=== PATIENT | female | born 1985 | race Caucasian/White ===

== ENCOUNTER 2016-10-02 13:07 | Outpatient (CLI) | payer MEDICAID ==
[~2016-10-02] VITALS: Ht 160 cm; Wt 72.7 kg
--- NOTE | 2016-10-02 14:11 | RADRPT ---
PROCEDURE: OB ultrasound for biophysical profile CLINICAL INDICATION: Biophysical profile. TECHNIQUE: Multiple sonographic images of the pelvis were obtained. Transabdominal view of the gr avid uterus are available for review. The images were reviewed on a PACS workstation. COMPARISON: None FINDINGS: breathing movement = 2/2 tone = 2/2 motion = 2/2 Quantitative amniotic fluid volume = 2/2 BERE = 16.4 cm Single live intrauterine with cardiac activity at 133 beats per minute. There is a posterior placenta without previa. IMPRESSION: 1. Single living intrauterine gestation in cephalic position. 2. Biophysical profile = 11/19. 3. BERE = 16.4 cm. RPTAT: [facility] Physician Madi Date Time Electronically viewed and signed by Charles Denton Physician on 10/02/2016 14:11 /
[2016-10-02 15:32] VITALS: BP 130/88; PULSE 80; RESP 18; Ht 160 cm; Wt 72.7 kg
[2016-10-02 15:58] LABS: ADD SCAN DIFF NO
[2016-10-02 15:59] LABS: BASOPHIL # 0.1 10^3/ul (0.0-0.1); BASOPHILS % 0.4 % (0.0-2.0); EOSINOPHILS # 0.1 10^3/ul (0.0-0.5); EOSINOPHILS % 0.5 % (0.0-7.0); LYMPHOCYTES # 2.2 10^3/ul (0.8-2.9); LYMPHOCYTES % 17.7 % (15.0-51.0); MEAN CORPUSCULAR HEMOGLOBIN 29.9 pg (29.0-33.0); MEAN CORPUSCULAR HGB CONC 34.2 g/dl (32.0-37.0); MEAN CORPUSCULAR VOLUME 87.4 fl (82.0-101.0); MEAN PLATELET VOLUME 12.6 fl (7.4-10.4); MONOCYTE # 0.6 10^3/ul (0.3-0.9); MONOCYTES % 4.7 % (0.0-11.0); NEUTROPHIL # 9.3 10^3/ul (1.6-7.5); NEUTROPHILS % 76.4 % (39.0-77.0); PLATELET COUNT 199 10^3/UL (140-415); RED BLOOD COUNT 4.35 10^6/ul (4.20-5.40); RED CELL DISTRIBUTION WIDTH 13.1 % (11.5-14.5); WHITE BLOOD COUNT 12.2 10^3/ul (4.8-10.8)
[2016-10-02 16:03] LABS: INR 0.91; PARTIAL THROMBOPLASTIN TIME 26.7 Sec (25.0-35.0); PROTIME 12.2 Sec (12.2-14.2)
[2016-10-02 16:12] LABS: ALBUMIN 4.1 g/dl (3.3-4.9); ALBUMIN/GLOBULIN RATIO 1.51; BILIRUBIN,INDIRECT 0.1 mg/dl (0-1.1); BILIRUBIN,TOTAL 0.1 mg/dl (0.2-1.3); CALCIUM 9.1 mg/dl (8.4-10.2); CREATININE 0.52 mg/dl (0.44-1.00); POTASSIUM 3.8 mmol/L (3.5-5.1); TOTAL PROTEIN 6.8 g/dl (6.1-8.1)
--- NOTE | 2016-10-02 16:49 | RADRPT ---
PROCEDURE: Obstetrical ultrasound greater than 14 weeks CLINICAL INDICATION: Vaginal after TECHNIQUE: Real time sonographic imaging of the gravid uterus is performed transabdominally and mu ltiple static joshi scale and Doppler images are submitted for review as are measurements. The image s are reviewed on the PACS. COMPARISON: No relevant exams are available FINDINGS: There is a single living intrauterine gestation in cephalic presentation. The heart beat is estimated at 136 bpm. The measurements are as follows: BPD:9.56 cm HC:33.20 cm AC:35.94 cm FL:7.13 cm Estimated gestational age is 38 weeks 2 days. The estimated date of delivery is 10/14/2016. The estimated weight is 3604 grams. Placenta is posterior fundal and grade2. There is no evidence of placenta previa or abruption. RPTAT:HJJR IMPRESSION: 1. Single viable intrauterine gestation in cephalic presentation estimated at 38 weeks 2 days with t he estimated date of delivery 10/14/2016. 2. Estimated weight 3604 g. Physician David Date Time Electronically viewed and signed by Physician David on 10/02/2016 16:48 /
[2016-10-02 18:59] LABS: ADD UMIC YES; UR ASCORBIC ACID NEGATIVE (NEGATIVE); UR BILIRUBIN (Dip) NEGATIVE (NEGATIVE); UR BLOOD (Dip) 1+ mg/dL (NEGATIVE); UR CLARITY CLEAR (CLEAR); UR COLOR YELLOW (YELLOW); UR GLUCOSE (Dip) NEGATIVE (NEGATIVE); UR KETONES (Dip) 1+ mg/dL (NEGATIVE); UR LEUKOCYTE ESTERASE (Dip) NEGATIVE Leu/ul (NEGATIVE); UR MUCUS FEW /HPF (NONE SEEN); UR NITRITE (Dip) NEGATIVE (NEGATIVE); UR RBC 0 /HPF (0-5); UR TOTAL PROTEIN (Dip) NEGATIVE (NEGATIVE); UR UROBILINOGEN (Dip) NEGATIVE (NEGATIVE)
[2016-10-02] MEDS ORDERED: PRENAT PO (18:59)
[2016-10-02] MEDS ORDERED: CALC600T11 PO (18:59)
--- NOTE | 2016-10-02 19:50 | TRIAGE ---
OB Triage Datetime Report Generated by CPN: 10/02/2016 19:50 Datetime: 10/02/2016 18:18 Stage of : OB Triage Labor Evaluation Frequency: 3-5 Monitor Mode: External Duration (sec)2399: 60-80 Quality: Mild Pattern: Normal: <= 5 Contractions in 10 Minutes Resting Tone [place]: Relaxed Heart Rate FHR Baseline Rate: 135 Monitor Mode: External US Variability: Moderate 6-25 bpm Accelerations: 15X15 Decelerations: None Category: Category I Pain Assessment Pain Scale: 2 Pain Presence: Intermittent Pain Type: Contraction Pain Location: Abdomen; Back Pain Goal: 2 Pain Relief Measures: Comfort Measures Pain Assessment Comments: PT REPORTS MINIMAL PAIN Vaginal Exam Dilatation (cms): 0.0 Effacement (%): 0 Station: -3 Exam By: OGBODU Datetime: 10/02/2016 17:00 Labor Evaluation Frequency: 3-5 Monitor Mode: External Duration (sec)2399: 60-80 Quality: Mild Pattern: Normal: <= 5 Contractions in 10 Minutes Resting Tone [place]: Relaxed Heart Rate FHR Baseline Rate: 135 Monitor Mode: External US Variability: Moderate 6-25 bpm Accelerations: 15X15 Decelerations: None Datetime: 10/02/2016 16:00 Labor Evaluation Frequency: 2-3 Monitor Mode: External Duration (sec)2399: 50-90 Quality: Moderate Pattern: Normal: <= 5 Contractions in 10 Minutes Resting Tone [place]: Relaxed Heart Rate FHR Baseline Rate: 125 Monitor Mode: External US Variability: Moderate 6-25 bpm Accelerations: 15X15 Decelerations: None Datetime: 10/02/2016 15:22 Pain Assessment Pain Scale: 2 Pain Presence: Intermittent Pain Type: Contraction Pain Location: Abdomen; Back Pain Goal: 2 Pain Relief Measures: Comfort Measures Pain Assessment Comments: 0 Datetime: 10/02/2016 15:18 Vaginal Exam Dilatation (cms): 0.0 Effacement (%): 0 Station: -3 Datetime: 10/02/2016 15:07 Labor Evaluation Frequency: 2-3 Monitor Mode: External Duration (sec)2399: 50-90 Quality: Moderate Pattern: Normal: <= 5 Contractions in 10 Minutes Resting Tone [place]: Relaxed Heart Rate FHR Baseline Rate: 125 Monitor Mode: External US Variability: Moderate 6-25 bpm Accelerations: 15X15 Decelerations: None Category: Category I Datetime: 10/02/2016 14:15 Stage of : OB Triage Assessment Type: Triage Time of Arrival: 10/02/2016 13:05 EGA: 39.1 Arrived By: Ambulatory Arrived From: Home Chief Complaint: DFM , UC SINCE 09 PT REQUESTING PREV C/S PAIN 04/23 Movement: Present Contractions: Irregular Time Contractions Began: 10/02/2016 09:00 Contractions: 2-4 Rupture of Membranes: Denies Vaginal Bleeding: None Vaginal Discharge: Denies Recent Sexual Intercouse: Denies Abdominal Trauma: Not Applicable Time Provider Notified: 10/02/2016 16:00 Provider Notified: DR. GUERRA Initial Plan: SVE, IV HYDRATION, BPP, EFW Maternal Assessment Level of Consciousness: Fully Conscious DTR's/Clonus: DTRs 2+; No Clonus Headache: Denies Blurred Vision: No Respiratory Effort: Unlabored; Regular Rhythm; Equal Expansion Breath Sounds, Left: Clear and Equal Breath Sounds, Right: Clear and Equal Nausea/Vomiting: Denies RUQ Epigastric Pain: Denies Lower Extremities Edema: Bilateral Lower Extremities Degree: 1+ Upper Extremities Edema: None Degree: None Facial Edema: None Temperature Route: Axillary Fall Risk Assessment History of Falling: (0) No Secondary Diagnosis: (0) No Ambulatory Aid: (0) Bedrest/Nurse Assist IV Therapy: (0) No Gait: (0) Normal/Bedrest/Immobile Mental Status: (0) Oriented to Own Ability Fall Score: 0 Fall Risk Score Definition: No Risk: No action required Datetime: 09/30/2016 16:30 Vaginal Exam Dilatation (cms): 0.0 Effacement (%): 0 Station: -4 Exam By: Jeovany CHAN RN
--- NOTE | 2016-10-03 00:26 | PN ---
Triage Information Date/Time 10/03/2016 31 years old with IUP at 39.1 weeks and History of prior C/S x1 , here today for r/o Labor. Desires TOLAC. Denies any LOF, vaginal bleeding or decreased movement., Weeks of Gestation 39.1 weeks : 3 Para: 1 Diabetes: none Hypertention: none Objective Vital Signs Date Time Temp Pulse Resp B/P Pulse Ox O2 Delivery O2 Flow Rate FiO2 10/02/16 15:32 98.1 80 18 130/88 Results/Medications Result Diagram: 10/02/16 1515 10/02/16 1515 Results 24 hrs Laboratory Tests Test 10/02/16 15:15 10/02/16 17:00 White Blood Count 12.2 H Red Blood Count 4.35 Hemoglobin 13.0 Hematocrit 38.0 Mean Corpuscular Volume 87.4 Mean Corpuscular Hemoglobin 29.9 Mean Corpuscular Hemoglobin Concent 34.2 Red Cell Distribution Width 13.1 Platelet Count 199 Mean Platelet Volume 12.6 #H Neutrophils % 76.4 Lymphocytes % 17.7 Monocytes % 4.7 Eosinophils % 0.5 Basophils % 0.4 Nucleated Red Blood Cells % 0.0 Neutrophils # 9.3 H Lymphocytes # 2.2 Monocytes # 0.6 Eosinophils # 0.1 Basophils # 0.1 Nucleated Red Blood Cells # 0.0 Prothrombin Time 12.2 Prothrombin Time Ratio 1.0 INR International Normalized Ratio 0.91 Activated Partial Thromboplast Time 26.7 Fibrinogen 690.0 H Sodium Level 135 Potassium Level 3.8 Chloride Level 105 Carbon Dioxide Level 22 Anion Gap 12 Blood Urea Nitrogen 6 L Creatinine 0.52 Glucose Level 63 L Uric Acid 5.0 Calcium Level 9.1 Total Bilirubin 0.1 L Direct Bilirubin 0.00 Indirect Bilirubin 0.1 Aspartate Amino Transf (AST/SGOT) 17 Alanine Aminotransferase (ALT/SGPT) 29 Alkaline Phosphatase 203 H Total Protein 6.8 Albumin 4.1 Globulin 2.70 Albumin/Globulin Ratio 1.51 Urine Color YELLOW Urine Clarity CLEAR Urine pH 5.0 Urine Specific [place] 1.010 Urine Ketones 1+ H Urine Nitrite NEGATIVE Urine Bilirubin NEGATIVE Urine Urobilinogen NEGATIVE Urine Leukocyte Esterase NEGATIVE Urine Microscopic RBC 0 Urine Microscopic WBC 1 Urine Mucus FEW A Urine Hemoglobin 1+ H Urine Glucose NEGATIVE Urine Total Protein NEGATIVE Imaging Results PROCEDURE: Obstetrical ultrasound greater than 14 weeks CLINICAL INDICATION: Vaginal after TECHNIQUE: Real time sonographic imaging of the gravid uterus is performed transabdominally and multiple static joshi scale and Doppler images are submitted for review as are measurements. The images are reviewed on the PACS. COMPARISON: No relevant exams are available FINDINGS: There is a single living intrauterine gestation in cephalic presentation. The heart beat is estimated at 136 bpm. The measurements are as follows: BPD: 9.56 cm HC: 33.20 cm AC: 35.94 cm FL: 7.13 cm Estimated gestational age is 38 weeks 2 days. The estimated date of delivery is 10/14/2016. The estimated weight is 3604 grams. Placenta is posterior fundal and grade2. There is no evidence of placenta previa or abruption. RPTAT:HJJR IMPRESSION: 1. Single viable intrauterine gestation in cephalic presentation estimated at 38 weeks 2 days with the estimated date of delivery 10/14/2016. 2. Estimated weight 3604 g. Assessment/Plan IUP at 39.1 weeks History of C/S x 1 Desires TOLAC No cevical change during observation noted DC home Strict Labor precaution and kick counts discussed Follow up with OB office in 1-2 days after discharge ANNIKA SAM MD Oct 03, 2016 00:26
== END 2016-10-02 19:00 | disposition home or self-care (01) ==
LOC: OBT 13:07 → L-D 13:30 → OBT 19:00
PROVIDERS: ATTEND Obstetrics & Gynecology
DX: O62.8 Other abnormalities of forces of labor (principal); O34.219 Maternal care for unspecified type scar from previous cesarean delivery; Z3A.39 39 weeks gestation of pregnancy
CPT/HCPCS: 36415; 76815; 76818; 80053; 81001; 84560; 85025; 85384; 85610; 85730; 96360; 96361; Z7500; G0463

== ENCOUNTER 2016-10-04 13:58 | Outpatient (CLI) | payer MEDICAID ==
[~2016-10-04] VITALS: Ht 160 cm; Wt 73.8 kg
[~2016-10-04 13:58] MED LIST: CALC600T11 PO; PRENAT PO
[2016-10-04 14:07] VITALS: Ht 160 cm; Wt 73.8 kg
[2016-10-04 14:09] VITALS: BP 134/89; PULSE 76; RESP 18
--- NOTE | 2016-10-04 15:15 | PN ---
Triage Information Date/Time Weeks of Gestation 39 3/7 : 3 Para: 1 Additional information Reports contractions and spotting. h/o CS x1, desires . Objective Vital Signs Date Time Temp Pulse Resp B/P Pulse Ox O2 Delivery O2 Flow Rate FiO2 10/04/16 14:09 98.0 76 18 134/89 98 Room Air Heart Rate Comments reactive Contractions: >10 Minutes Apart Exam L/C Results/Medications Imaging Results BPP ordered Assessment/Plan at 39 3/7 weeks who desires with spotting and contractions, not in active labor -discharge home with labor precautions pending normal BPP -f/u with OB, CS scheduled BERNARDO KINNEY Oct 04, 2016 15:15
--- NOTE | 2016-10-04 15:35 | RADRPT ---
PROCEDURE: OB ultrasound for biophysical profile CLINICAL INDICATION: Contractions TECHNIQUE: Multiple sonographic images of the pelvis were obtained. Transabdominal view of the gr avid uterus are available for review. The images were reviewed on a PACS workstation. COMPARISON: None FINDINGS: breathing movement = 2/2 tone = 2/2 motion = 2/2 BERE = 2/2 BERE = 12.4 cm Single live intrauterine with cardiac activity. heart rate equals 128 beats p er minute. Presentation is cephalic. The placenta is fundal. IMPRESSION: 1. Single viable intrauterine gestation. 2. Biophysical profile = 8/8. 3. BERE = 12.4 cm. RPTAT: KK .Christopher Newberry MD, Date Time Electronically viewed and signed by .Christopher Newberry MD, MD on 10/04/2016 15:35 .B/
--- NOTE | 2016-10-04 15:53 | TRIAGE ---
OB Triage Datetime Report Generated by CPN: 10/04/2016 15:53 Datetime: 10/04/2016 15:44 Labor Evaluation Frequency: 6-9 Monitor Mode: External Duration (sec)2399: 60-100 Quality: Mild Pattern: Normal: <= 5 Contractions in 10 Minutes Resting Tone [place]: Relaxed Heart Rate FHR Baseline Rate: 125 Variability: Moderate 6-25 bpm Accelerations: 15X15 Decelerations: None Category: Category I Pain Assessment Pain Scale: 3 Pain Presence: Intermittent Pain Type: Contraction Pain Location: Abdomen Pain Goal: 3 Datetime: 10/04/2016 15:00 Labor Evaluation Frequency: 5-10 Monitor Mode: External Duration (sec)2399: 60-5mins Quality: Mild Pattern: Normal: <= 5 Contractions in 10 Minutes Resting Tone [place]: Relaxed Heart Rate FHR Baseline Rate: 135 Monitor Mode: External US Variability: Moderate 6-25 bpm Accelerations: 15X15 Decelerations: None Category: Category I Pain Assessment Pain Scale: 3 Pain Presence: Intermittent Pain Type: Contraction Pain Location: Abdomen Pain Goal: 3 Datetime: 10/04/2016 14:04 Stage of : OB Triage Maternal Assessment Level of Consciousness: Fully Conscious DTR's/Clonus: DTRs 2+; No Clonus Headache: Denies Blurred Vision: No Respiratory Effort: Unlabored; Regular Rhythm; Equal Expansion Breath Sounds, Left: Clear and Equal Breath Sounds, Right: Clear and Equal Nausea/Vomiting: Denies RUQ Epigastric Pain: Denies Lower Extremities Edema: Bilateral Lower Extremities Degree: 1+ Facial Edema: None Temperature Route: Axillary Fall Risk Assessment History of Falling: (0) No Secondary Diagnosis: (0) No Ambulatory Aid: (0) Bedrest/Nurse Assist IV Therapy: (0) No Gait: (0) Normal/Bedrest/Immobile Mental Status: (0) Oriented to Own Ability Fall Score: 0 Fall Risk Score Definition: No Risk: No action required Labor Evaluation Frequency: 5 (Annotations: per pt) Monitor Mode: External Duration (sec)2399: 60 Quality: Mild Pattern: Normal: <= 5 Contractions in 10 Minutes Heart Rate FHR Baseline Rate: 135 Monitor Mode: External US FHR Baseline Changes: No Baseline Change Pain Assessment Pain Scale: 3 Pain Presence: Intermittent Pain Type: Cramping; Contraction Pain Location: Abdomen Datetime: 10/04/2016 14:02 Time of Arrival: 10/04/2016 14:02 EGA: 39.3 Arrived By: Wheelchair Arrived From: Home Chief Complaint: contraction, spotting, pain level 3/10 (Annotations: Data stored by CPN on behalf of user) Movement: Present Time Contractions Began: 10/04/2016 09:00 Rupture of Membranes: Denies Vaginal Bleeding: Normal Show Vaginal Discharge: Present Recent Sexual Intercouse: Denies Abdominal Trauma: Not Applicable Patient Complaints: Contractions Time Provider Notified: 10/04/2016 14:37 Provider Notified: Varghese Initial Plan: efm/ sve Datetime: 10/02/2016 14:15 EGA: 39.1 Fall Score: 0 Fall Risk Score Definition: No Risk: No action required
== END 2016-10-04 15:49 | disposition home or self-care (01) ==
LOC: OBT 13:58 → L-D 13:59 → OBT 15:49
PROVIDERS: ATTEND Obstetrics & Gynecology
DX: O46.93 Antepartum hemorrhage, unspecified, third trimester (principal); O62.9 Abnormality of forces of labor, unspecified; Z3A.39 39 weeks gestation of pregnancy
CPT/HCPCS: 76818; Z7500; G0463

== ENCOUNTER 2016-10-05 22:21 | Inpatient (IN) | payer MEDICAID ==
[~2016-10-05] VITALS: Ht 167.6 cm; Wt 73.1 kg
[2016-10-05 22:55] VITALS: Ht 167.6 cm; Wt 73.1 kg
[2016-10-05 22:56] VITALS: BP 133/91; PULSE 95; RESP 18
[2016-10-06] MEDS: LACTATED RINGER'S 1,000 ML IV SCH ×5 (02:09→22:00)
[2016-10-06] MEDS ORDERED: MISOPROSTOL 200 MCG TAB PR PRN ×4 (02:30→20:30)
[2016-10-06] MEDS ORDERED: ACETAMINOPHEN/CODEINE #3 TAB PO PRN ×2 (02:30→20:30)
[2016-10-06] MEDS ORDERED: IBUPROFEN 600 MG TAB PO PRN (02:30)
[2016-10-06] MEDS ORDERED: METHYLERGONOVINE 0.2 MG INJ IM PRN ×4 (02:30→20:30)
[2016-10-06] MEDS ORDERED: LIDOCAINE 1% (MPF) 30 ML INJ INJ PRN ×2 (02:30)
[2016-10-06] MEDS ORDERED: OXYTOCIN 30 UNITS/LR 500 ML IV PRN ×4 (02:30→20:30)
[2016-10-06] MEDS ORDERED: CARBOPROST 250 MCG INJ IM PRN ×4 (02:30→20:30)
[2016-10-06] MEDS ORDERED: BUTORPHANOL 2 MG INJ IV PRN ×2 (02:30)
[2016-10-06] MEDS ORDERED: OXYCODONE/ACETAMINOPHEN (5/325) TAB PO PRN (02:30)
[2016-10-06] MEDS ORDERED: LABETALOL HCL 20MG INJ IV ONE (02:30)
[2016-10-06] MEDS ORDERED: OXYTOCIN 30 UNITS/LR 500 ML IV SCH ×2 (02:30)
[2016-10-06 03:19] LABS: ADD SCAN DIFF NO
[2016-10-06 03:20] LABS: BASOPHIL # 0.1 10^3/ul (0.0-0.1); BASOPHILS % 0.4 % (0.0-2.0); EOSINOPHILS # 0.1 10^3/ul (0.0-0.5); EOSINOPHILS % 1.2 % (0.0-7.0); HEMATOCRIT 36.1 % (37.0-47.0); HEMOGLOBIN 12.5 g/dl (12.0-16.0); LYMPHOCYTES # 2.4 10^3/ul (0.8-2.9); LYMPHOCYTES % 21.1 % (15.0-51.0); MEAN CORPUSCULAR HEMOGLOBIN 30.4 pg (29.0-33.0); MEAN CORPUSCULAR HGB CONC 34.6 g/dl (32.0-37.0); MEAN CORPUSCULAR VOLUME 87.8 fl (82.0-101.0); MEAN PLATELET VOLUME 12.4 fl (7.4-10.4); MONOCYTE # 0.8 10^3/ul (0.3-0.9); MONOCYTES % 7.1 % (0.0-11.0); NEUTROPHILS % 69.9 % (39.0-77.0); PLATELET COUNT 199 10^3/UL (140-415); RED BLOOD COUNT 4.11 10^6/ul (4.20-5.40); WHITE BLOOD COUNT 11.5 10^3/ul (4.8-10.8)
[2016-10-06 03:25] LABS: INR 0.87; PARTIAL THROMBOPLASTIN TIME 27.4 Sec (25.0-35.0); PROTIME 11.8 Sec (12.2-14.2); PT RATIO 0.9
[2016-10-06 03:45] LABS: ALBUMIN 3.8 g/dl (3.3-4.9); ALBUMIN/GLOBULIN RATIO 1.46; CALCIUM 9.4 mg/dl (8.4-10.2); CREATININE 0.56 mg/dl (0.44-1.00); POTASSIUM 3.8 mmol/L (3.5-5.1); TOTAL PROTEIN 6.4 g/dl (6.1-8.1); URIC ACID 4.9 mg/dl (3.1-7.9)
[2016-10-06 08:23] LABS: ADD UMIC YES; UR ASCORBIC ACID NEGATIVE (NEGATIVE); UR BILIRUBIN (Dip) NEGATIVE (NEGATIVE); UR BLOOD (Dip) 3+ mg/dL (NEGATIVE); UR BUDDING YEAST FEW /HPF (NONE SEEN); UR CLARITY CLOUDY (CLEAR); UR COLOR YELLOW (YELLOW); UR GLUCOSE (Dip) NEGATIVE (NEGATIVE); UR KETONES (Dip) NEGATIVE (NEGATIVE); UR LEUKOCYTE ESTERASE (Dip) 1+ Leu/ul (NEGATIVE); UR MUCUS FEW /HPF (NONE SEEN); UR NITRITE (Dip) NEGATIVE (NEGATIVE); UR RBC 10 /HPF (0-5); UR SPECIFIC GRAVITY (Dip) 1.014 (1.003-1.030); UR TOTAL PROTEIN (Dip) NEGATIVE (NEGATIVE); UR UROBILINOGEN (Dip) NEGATIVE (NEGATIVE)
[2016-10-06] MEDS ORDERED: CEFAZOLIN 2 GM/50 ML (PMX) 50 ML IVPB ONE (14:24)
[2016-10-06] MEDS ORDERED: CITRIC ACID/SODIUM CITRATE 15 ML CUP ONE (14:24)
[2016-10-06] MEDS ORDERED: CITRIC ACID/SODIUM CITRATE 15 ML CUP PO ONE (14:35)
[2016-10-06] MEDS ORDERED: CEFAZOLIN 2 GM/50 ML (PMX) 50 ML IV SCH (15:00)
[2016-10-06] MEDS ORDERED: morphine SULFATE/PF (10 MG/10 ML) INJ ONE (15:39)
[2016-10-06] MEDS ORDERED: METOCLOPRAMIDE 10 MG INJ ONE (15:39)
[2016-10-06] MEDS ORDERED: KETOROLAC 30 MG INJ ONE (15:40)
[2016-10-06] MEDS ORDERED: HYDROmorphONE (0.2 MG/ML) 10ML SYG IV PRN ×3 (16:30)
[2016-10-06] MEDS ORDERED: HYDROmorphONE 1 MG/ML SYG IV PRN ×3 (16:30)
[2016-10-06] MEDS ORDERED: NALOXONE (0.4 MG/ML) INJ IV PRN (16:30)
[2016-10-06] MEDS ORDERED: DIPHENHYDRAMINE 50 MG INJ IV PRN ×2 (16:30)
[2016-10-06] MEDS ORDERED: ONDANSETRON 4 MG INJ IV PRN ×2 (16:30)
[2016-10-06] MEDS ORDERED: MEPERIDINE 25 MG INJ IV PRN (16:30)
[2016-10-06] MEDS ORDERED: METOCLOPRAMIDE 10 MG INJ IV PRN (16:30)
--- NOTE | 2016-10-06 17:05 | HP ---
Date/Time of Note Date/Time of Note DATE: 10/06/16 TIME: 17:01 OB - History Hx of Present Free Text/Dictation C/O Uterine contractions Q 10 minutes and finally requested repeat C/S Last Menstrual Period: Jan 02, 2016 Estimated Due Date: Oct 08, 2016 : 3 Para: 1 Spontaneous : 1 Care: Good Care Ultrasounds: Normal mid trimester US Obstetrical Complications: None Medical Complications: None Past Family/Social History * Past Medical, Surgical, Family and Obstetric Histories reviewed from chart. Blood Type: O+ Rubella: immune RPR/VDRL: Negative GBS Status: Negative HBsAG: Negative OB Admission Exam Vital Signs Vital Signs Vital Signs Date Time Temp Pulse Resp B/P Pulse Ox O2 Delivery O2 Flow Rate FiO2 10/05/16 22:56 98.5 95 18 133/91 Room Air Physical Exam HEENT: WNL Heart: Rhythm Normal Lungs: Clear, Equal Abdomen: WNL Extremities: Normal Reflexes: Normal Effacement: 50% Station: -3 Membranes: Intact Heart Rate: 140's Accelerations: Accelerations Present Decelerations: No Decelerations Varibility: Marked Contractions on Admission: >10 Minutes Apart Date/Time Contractions Began: 10/03/2016 Frequency of Contractions: q10 minutes Duration: around 45 seconds Intensity: Mild Last 72 hours Lab Results CBC & BMP 10/06/16 01:21 Liver Function Test 10/06/16 01:21 Alanine Aminotransferase (ALT/SGPT) 23 Albumin 3.8 Alkaline Phosphatase 190 H Aspartate Amino Transf (AST/SGOT) 18 Direct Bilirubin 0.00 Total Protein 6.4 OB Assessment/Plan Other Assessment: term gestation previous C/S X 1 desires repeat C/S Other plan: repeat C/S Patient had good awareness of nature and complications of C/S procedure including but but limited to infection and hemorrhage and agreed to undergo C/S . CAM CURTIS MD Oct 06, 2016 17:05
--- NOTE | 2016-10-06 17:08 | OPR ---
Operative Report Planned Procedure Procedure date Oct 06, 2016 Procedure(s) repeat C/S Performed by: CAM CURTIS MD Assisting provider: STACI CARRIZALES MD Anesthesiologist: PETER MACK MD Pre-procedure diagnosis term gestation previous C/S Anesthesia Type: spinal Procedure Description Under satisfactory anaesthesia a Pfannenstiel incision was made two fingerbreadth above and parallel to the symphysis of pubis around the previous scar and previous scar was removed Incision was extended laterally to the border of the Recti muscles on either sides. Incision was carried down with sharp and blunt dissection until fascia was reached. Anterior Recti muscle fascia was incised in mid portion and incision extended laterally to the border of skin incision. Fascia was mobilized from muscle superiorly and Recti muscles were from midline using sharp and blunt dissection. Peritoneum was visualized; Avoiding bowel and bladder it was incised . Incision was extended superiorly and inferiorly. Bladder blade was placed. Posterior peritoneum covering the lower segment of the uterus and lower segment of the uterus were incised.Low transverse uterine incision was made on lower segment of the uterus. Incision extended laterally to the border of Round Lig. on either sides and baby was delivered from OT. position . Amniotic fluid appeared clear. Cord blood was obtained and cord had 3 vessels . Placenta was delivered spontaneously and appeared intact and complete. Intrauterine cavity was rubbed with a laparotomy sponge. Uterine incision was closed in 2 layers using running stitches of No1 Monocryl. Hemostasis appeared Announcing needle, lap sponge and instrument count to be correct abdomen was closed in layers as follows: Peritoneum and Recti muscles with running stitches of 20 Vicryl. Fascia with running stitch of No 1 PDS. Subcutaneous tissue with running stitches of 20 Chromic and skin was closed using reyes. Patient tolerated the procedure well and was transferred to [facility] in good condition. Post-Procedure Post-procedure diagnosis S/P C/S Findings: Live Baby Specimen removed: No Complications: None Pt Condition post procedure: stable Disposition: PACU Physician Certification I, the undersigned physician, hereby certify that I have discussed the procedure described in this consent form with this patient (or the patient's legal goodwill representative), including: * The risk and benefits of the procedure; * Any adverse reactions that may reasonably be expected to occur; * Any alternative efficacious methods of treatment which may be medically viable ; * The potential problems that may occur during recuperation; * Potential for blood transfusion and associated risks/benefits; and * Any research or economic interest I may have regarding this treatment. I further certify that the patient/legally responsible person was encouraged to ask question and that all questions were answered. CAM CURTIS MD Oct 06, 2016 17:08
[2016-10-06 20:00] VITALS: BP 155/92; PULSE 67; RESP 18
[2016-10-06 20:15] VITALS: BP 156/99; PULSE 68; RESP 18
[2016-10-06] MEDS ORDERED: NA PHOSPHATE/BIPHOS 133 ML ENEMA PR PRN ×2 (20:30)
[2016-10-06] MEDS ORDERED: LANOLIN 7 GM TUBE TOP PRN (20:30)
[2016-10-06] MEDS: SENNA/DOCUSATE NA (8.6MG/50MG) TAB PO SCH (21:00)
[2016-10-06 22:00] VITALS: BP 136/86; RESP 17
[2016-10-06] MEDS ORDERED: IBUPROFEN 800 MG TAB PO SCH (22:00)
[2016-10-06] MEDS: IBUPROFEN 800 MG TAB PO SCH (22:00)
[2016-10-06] MEDS: CEFAZOLIN 2 GM/50 ML (PMX) 50 ML IV SCH (22:00)
[2016-10-07] VITALS: BP 123/77; PULSE 71; RESP 18
[2016-10-07] MEDS ORDERED: LACTATED RINGER'S 1,000 ML IV PRN ×2
[2016-10-07 04:00] VITALS: BP 115/77; PULSE 82; RESP 19
[2016-10-07] MEDS: IBUPROFEN 800 MG TAB PO SCH ×3 (06:00→22:17)
[2016-10-07] MEDS: CEFAZOLIN 2 GM/50 ML (PMX) 50 ML IV SCH ×2 (06:20→14:10)
[2016-10-07] MEDS: LACTATED RINGER'S 1,000 ML IV SCH ×2 (06:21→12:02)
[2016-10-07] MEDS: KETOROLAC 30 MG INJ IV PRN ×2 (06:25→14:10)
[2016-10-07 08:16] LABS: ADD SCAN DIFF NO
[2016-10-07 08:20] LABS: BASOPHILS % 0.4 % (0.0-2.0); EOSINOPHILS % 0.4 % (0.0-7.0); HEMOGLOBIN 11.1 g/dl (12.0-16.0); LYMPHOCYTES # 1.8 10^3/ul (0.8-2.9); MEAN CORPUSCULAR HEMOGLOBIN 29.6 pg (29.0-33.0); MEAN CORPUSCULAR HGB CONC 33.6 g/dl (32.0-37.0); MEAN PLATELET VOLUME 11.8 fl (7.4-10.4); MONOCYTE # 0.5 10^3/ul (0.3-0.9); MONOCYTES % 5.2 % (0.0-11.0); NEUTROPHIL # 7.9 10^3/ul (1.6-7.5); NEUTROPHILS % 76.8 % (39.0-77.0); PLATELET COUNT 168 10^3/UL (140-415); RED BLOOD COUNT 3.75 10^6/ul (4.20-5.40); WHITE BLOOD COUNT 10.3 10^3/ul (4.8-10.8)
[2016-10-07 08:30] VITALS: BP 110/75; PULSE 89; RESP 20
[2016-10-07] MEDS: SENNA/DOCUSATE NA (8.6MG/50MG) TAB PO SCH ×2 (09:16→22:17)
[2016-10-07] MEDS ORDERED: BISACODYL 10 MG SUPP PR ONE (10:30)
[2016-10-07 12:30] VITALS: BP 125/70; PULSE 89; RESP 18
[2016-10-07 16:45] VITALS: BP 116/76; PULSE 75; RESP 18
[2016-10-07] MEDS: CLINDAMYCIN 300 MG CAP PO SCH (18:01)
[2016-10-07] MEDS: OXYCODONE/ACETAMINOPHEN (5/325) TAB PO PRN (18:02)
--- NOTE | 2016-10-07 18:49 | PN ---
Date/Time of Note Date/Time of Note DATE: 10/07/16 TIME: 18:48 Assessment/Plan VTE Prophylaxis VTE Prophylaxis Intervention: ambulation Lines/Catheters IV Catheter Type (from Nrsg): Peripheral IV Assessment/Plan Assessment/Plan S/P C/S POD # 1 will advance diet and ambulate Subjective 24 Hr Interval Summary NO BM passing flatus Constitutional: BM, ambulates, flatus, improved, no complaints, urine output Pain Control: well controlled Exam/Review of Systems Vital Signs Vitals Vital Signs Date Time Temp Pulse Resp B/P Pulse Ox O2 Delivery O2 Flow Rate FiO2 10/07/16 16:45 98.2 75 18 116/76 Room Air Intake and Output 10/06/16 10/06/16 10/07/16 15:00 23:00 07:00 Output Total 1400 ml 1300 ml Balance -1400 ml -1300 ml Exam Free Text/Dictation abdomen: soft bs + incision: covered Constitutional: alert, oriented, well developed Psych: nl mood/affect, no complaints Head: atraumatic, normocephalic Eyes: EOMI, nl conjunctiva, nl lids, nl sclera ENMT: mucosa pink and moist, nl external ears & nose, nl lips & teeth, nl nasal mucosa & septum Neck: non-tender, supple Respiratory: clear to auscultation, normal air movement Cardiovascular: nl pulses, regular rate and rhythm Gastrointestinal: nl liver, spleen, non-tender, soft Musculoskeletal: nl extremities to inspection, nl gait and stance Extremities: normal pulses Neurological: CLIENT EXPERIENCE SPECIALIST II-XII intact, nl mental status, nl speech, nl strength Skin: nl turgor, rash or lesions Lymph: nl lymph nodes Results Result Diagram: 10/07/16 0733 10/06/16 0121 CAM CURTIS MD Oct 07, 2016 18:49
[2016-10-07 20:00] VITALS: BP 138/87; PULSE 72; RESP 18
[2016-10-08] VITALS (10 sets, daily range): BP systolic 128–162; BP diastolic 78–106; PULSE 58–83; RESP 18–19
[2016-10-08] MEDS: OXYCODONE/ACETAMINOPHEN (5/325) TAB PO PRN ×4 (04:30→20:51)
[2016-10-08] MEDS: LABETALOL 100 MG TAB PO SCH ×3 (06:04→20:53)
[2016-10-08] MEDS: CLINDAMYCIN 300 MG CAP PO SCH ×5 (06:04→23:35)
[2016-10-08] MEDS: IBUPROFEN 800 MG TAB PO SCH ×3 (06:04→22:30)
--- NOTE | 2016-10-08 07:11 | PN ---
Date/Time of Note Date/Time of Note DATE: 10/07/16 TIME: 07:08 Anesthesia note A 31 year old female s/p spinal duramorph pod# 1 is doing well. no back pain, n/ v, headache, itching. pain is controlled. care per surgery team Assessment/Plan VTE Prophylaxis VTE Prophylaxis Intervention: ambulation Lines/Catheters IV Catheter Type (from Nrs): Peripheral IV Exam/Review of Systems Vital Signs Vitals Vital Signs Date Time Temp Pulse Resp B/P Pulse Ox O2 Delivery O2 Flow Rate FiO2 10/08/16 07:05 67 129/85 10/08/16 05:40 Room Air 10/08/16 05:20 18 10/08/16 04:00 98.0 Intake and Output 10/07/16 10/07/16 10/08/16 14:59 22:59 06:59 Output Total 800 ml 2100 ml Balance -800 ml -2100 ml Results Result Diagram: 10/07/16 0733 10/06/16 0121 Results 24 hrs Laboratory Tests Test 10/07/16 07:33 White Blood Count 10.3 Red Blood Count 3.75 L Hemoglobin 11.1 L Hematocrit 33.0 L Mean Corpuscular Volume 88.0 Mean Corpuscular Hemoglobin 29.6 Mean Corpuscular Hemoglobin Concent 33.6 Red Cell Distribution Width 13.0 Platelet Count 168 Mean Platelet Volume 11.8 H Neutrophils % 76.8 Lymphocytes % 17.0 Monocytes % 5.2 Eosinophils % 0.4 Basophils % 0.4 Nucleated Red Blood Cells % 0.0 Neutrophils # 7.9 H Lymphocytes # 1.8 Monocytes # 0.5 Eosinophils # 0.0 Basophils # 0.0 Nucleated Red Blood Cells # 0.0 Medications Medications Current Medications Simethicone (Mylicon) 160 mg Q8H PRN PO DISTENSION/GAS/BLOATING Last administered on 10/07/16 09:17; Admin Dose 160 MG; Start 10/06/16 at 20:30 Senna/Docusate Sodium (Senokot-S) 1 tab BID PO Last administered on 10/07/16 22:17; Admin Dose 1 TAB; Start 10/06/16 at 21:00 Diphtheria/ Tetanus/Acell Pertussis (Adacel) 0.5 ml ONCE ONCE IM* ; Start at 09:00; Stop 10/09/16 at 09:01 Measles/Mumps/ Rubella Vaccine Live 0.5 ml 0.5 ml ONCE ONCE SC* ; Start at 09:00; Stop 10/09/16 at 09:01 Oxytocin/Lactated Ringer's 500 ml @ 0 mls/hr ONCE PRN IV For Hemorrhage Management; Start 10/06/16 at 20:30 Methylergonovine Maleate (Methergine) 0.2 mg ONCE PRN IM VAGINAL BLEEDING; Start 10/06/16 at 20:30 Carboprost Tromethamine (Hemabate) 250 mcg ONCE PRN IM VAGINAL BLEEDING; Start 10/06/16 at 20:30 Misoprostol (Cytotec) 1,000 mcg ONCE PRN IN VAGINAL BLEEDING; Start 10/06/16 at 20:30 Acetaminophen/ Codeine Phosphate (Tylenol No.3) 2 tab Q4H PRN PO PAIN LEVEL 1-5 ; Start 10/06/16 at 20:30 Oxycodone/ Acetaminophen (Percocet (5/ 325)) 2 tab Q4H PRN PO PAIN LEVEL 6-10 Last administered on 10/08/16 04:30; Admin Dose 1 TAB; Start 10/06/16 at 20:30 Clindamycin HCl (Cleocin) 300 mg Q6 PO Last administered on 10/08/16 06:04; Admin Dose 300 MG; Start 10/07/16 at 18:00 Ibuprofen (Motrin) 800 mg Q8 PO Last administered on 10/08/16 06:04; Admin Dose 800 MG; Start 10/06/16 at 22:00 Sodium Biphosphate/ Sodium Phosphate (Fleet Enema) 133 ml DAILY PRN IN CONSTIPATION; Start 10/06/16 at 20:30 Labetalol HCl (Normodyne) 100 mg BID PO Last administered on 10/08/16 06:04; Admin Dose 100 MG; Start 10/08/16 at 05:47 PETER MACK MD Oct 08, 2016 07:11
[2016-10-08] MEDS: SENNA/DOCUSATE NA (8.6MG/50MG) TAB PO SCH ×2 (08:47→20:51)
--- NOTE | 2016-10-08 18:45 | DS ---
Date/Time of Note Date/Time of Note home next day DATE: 10/08/16 TIME: 18:44 Obstetrical Discharge Record Final Diagnosis Final Diagnosis: Term delivered Other Final Diagnosis S/P C/S Section Section: Repeat Condition on Discharge Physical Assessment Last Vitals: see nurses notes Voiding: Yes Bowel Movement: Yes Breast: Soft, non-tender, Filling Fundus: Firm Abdomen and Incision: soft BS + incision:healing well Episiotomy: NA Calf Tenderness: No Patient Condition: Good CAM CURTIS MD Oct 08, 2016 18:45
--- NOTE | 2016-10-08 18:48 | DS ---
Date/Time of Note Date/Time of Note DATE: 10/08/16 TIME: 18:46 Discharge Summary Admission/Discharge Info Admit Date/Time Oct 06, 2016 at 01:01 Discharge Date/Time 10/09/2016 Discharge Diagnosis S/P repeat C/S Patient Condition: Good Procedures repeat C/S Hx of Present Illness 31 y/o female had repeat C/S at term Hospital Course Uncomplicated Home Meds Reported Medications Calcium Carbonate* (Calcium Carbonate*) 600 MG Ca Tab, 600 MG PO, TAB 10/02/16 Multivit/Min/Fol Ac/Iron/Pren* ( S*) 1 Tab Tab, 1 TAB PO DAILY, TAB 10/02/16 Follow-up Plan 2-3 days in clinic for staple removal Primary Care Provider Care Physician No Primary CAM CURTIS MD Oct 08, 2016 18:48
--- NOTE | 2016-10-08 18:50 | PD.PPDC ---
[employer] Discharge Instruction Provider Information Physician Information 31 y/o female had repeat C/S Diagnosis Final Diagnosis: S/P C/S Condition Patient Condition: Good Diet Diet: Resume Regular Diet Activity/Restrictions Activity: August Shower Restrictions: No Exercising No Lifting Nothing in the Vagina Return to Work or School: Dec 09, 2016 Wound/Drain Care Instructions Wound/Drain Care Instructions: Keep clean and dry Follow-up Follow-up with Physician: 2, 3, Day/Days (in clinic for staple removal ) Return to clinic for BACK WINDER Instructions: Fever greater than 101 Chills OB Instructions: Breast Tenderness Depression Surgical Instructions: Incisional Drainage Incisional Redness CAM CURTIS MD Oct 08, 2016 18:49
[2016-10-08] MEDS ORDERED: Oxycodone/Acetamin (5/325) PO (18:51)
[2016-10-08] MEDS ORDERED: LABE100T3 PO (18:51)
[2016-10-08] MEDS ORDERED: IBUP800T25 PO (18:51)
[2016-10-09] VITALS: BP 148/91; PULSE 57; RESP 19
[2016-10-09 04:15] VITALS: BP 161/100; PULSE 57; RESP 19
[2016-10-09] MEDS: OXYCODONE/ACETAMINOPHEN (5/325) TAB PO PRN (04:15)
[2016-10-09] MEDS ORDERED: LABETALOL 200 MG TAB PO ONE (04:30)
[2016-10-09] MEDS ORDERED: AMLODIPINE 5 MG TAB PO ONE (05:30)
[2016-10-09] MEDS: CLINDAMYCIN 300 MG CAP PO SCH ×3 (05:32→17:37)
[2016-10-09] MEDS: IBUPROFEN 800 MG TAB PO SCH ×2 (05:56→13:42)
[2016-10-09 08:15] VITALS: BP 150/99; PULSE 68; RESP 18
[2016-10-09] MEDS: SENNA/DOCUSATE NA (8.6MG/50MG) TAB PO SCH ×2 (08:44→20:42)
[2016-10-09] MEDS: LABETALOL 100 MG TAB PO SCH ×2 (08:44→20:42)
[2016-10-09] MEDS ORDERED: MEASLES,MUMPS,RUBELLA VACCINE INJ SC* ONE (09:00)
[2016-10-09] MEDS ORDERED: DIPHTH/TET/ACEL PERTUSS (ADULT) 0.5 ML VIAL IM* ONE (09:00)
[2016-10-09 11:25] VITALS: BP 139/87; PULSE 75; RESP 22
[2016-10-09 15:59] VITALS: BP 139/93; PULSE 74; RESP 20
[2016-10-09 19:55] VITALS: BP 157/91; PULSE 85; RESP 18
== END 2016-10-09 21:25 | disposition home or self-care (01) | DRG 766 ==
LOC: OBT 22:21 → L-D 22:23 → OBT 10-06 01:01 → L-D 10-06 15:23 → PP1 10-06 19:10
PROVIDERS: ADMIT Obstetrics & Gynecology; ATTEND Obstetrics & Gynecology
PROC: 10D00Z1 Extraction of Products of Conception, Low, Open Approach (ICD-10-PCS; principal; 2016-10-06 16:00)
PROC: 3E0234Z Introduction of Serum, Toxoid and Vaccine into Muscle, Percutaneous Approach (ICD-10-PCS; 2016-10-09)
DX: O34.211 Maternal care for low transverse scar from previous cesarean delivery (principal); Z23 Encounter for immunization; Z3A.39 39 weeks gestation of pregnancy; Z37.0 Single live birth
CPT/HCPCS: 80053; 81001; 84560; 85025; 85384; 85610; 85730; 86592; 86900; 86901; 87340; 90715; 99464; G0463; J0595; J0690; J1170; J1885; J2274; J2590; J2765; J7120

== ENCOUNTER 2016-11-16 20:26 | Emergency (ER) | payer MEDICAID ==
[~2016-11-16] VITALS: Ht 160 cm; Wt 61.0 kg
[~2016-11-16 20:26] MED LIST changes: +IBUP800T25 PO; +LABE100T3 PO; +Oxycodone/Acetamin (5/325) PO
[2016-11-16 20:47] VITALS: Ht 160 cm; Wt 61.0 kg
--- NOTE | 2016-11-16 21:33 | ERD ---
ER Documentation Chief Complaint Date/Time DATE: 11/16/16 TIME: 21:32 Chief Complaint SEROSANGENOUS DRAINAGE S5SOSIL WAS GIVEN ABX HPI Patient is a 31-year-old female who is status post and is currently taking clindamycin as given to her by her primary care doctor for wound infection. She is here because she is almost done with her week long course but she thinks it is still infected and is not getting any better. She has had some clear drainage and a scant amount of blood from it. No fever. She sees her primary care doctor on Friday. ROS All systems reviewed and are negative except as per history of present illness. Medications Home Meds Active Scripts Labetalol Hcl* (Labetalol Hcl*) 100 Mg Tablet, 100 MG PO BID, #60 TAB 0 Refills Prov:CAM CURTIS MD 10/08/16 [Oxycodone/Acetamin (5/325)] 1 TAB TAB No Conflict Check, 2 TAB PO Q4H Y for PAIN LEVEL 6-10, #30 0 Refills Prov:CAM CURTIS MD 10/08/16 Ibuprofen* (Ibuprofen*) 800 Mg Tablet, 800 MG PO Q8, #30 TAB 0 Refills Prov:CAM CURTIS MD 10/08/16 Reported Medications Calcium Carbonate* (Calcium Carbonate*) 600 MG Ca Tab, 600 MG PO, TAB 10/02/16 Multivit/Min/Fol Ac/Iron/Pren* ( S*) 1 Tab Tab, 1 TAB PO DAILY, TAB 10/02/16 Allergies Allergies: Coded Allergies: No Known Allergy (Unverified , 10/05/16) PMhx/Soc History of Surgery: Yes (C SECTION) Anesthesia Reaction: No Hx Neurological Disorder: No Hx Respiratory Disorders: No Hx Cardiac Disorders: No Hx Psychiatric Problems: No Hx Miscellaneous Medical Probl: No Hx Alcohol Use: No Hx Substance Use: No Hx Tobacco Use: No FmHx Family History: No diabetes Physical Exam Vitals Vital Signs Date Time Temp Pulse Resp B/P Pulse Ox O2 Delivery O2 Flow Rate FiO2 11/16/16 20:47 97.5 94 20 141/99 100 Physical Exam Const: [] Head: Atraumatic Eyes: Normal Conjunctiva ENT: Normal External Ears, Nose and Mouth. Neck: Full range of motion..~ No meningismus. Resp: Clear to auscultation bilaterally Cardio: Regular rate and rhythm, no murmurs Abd: Soft, non tender, non distended. Normal bowel sounds Skin: Healing surgical scar without any erythema or edema, no tenderness, no warmth, no drainage, very scant amount of blood Procedures/MDM Patient here for wound check she thinks her wound is still infected however at this time I do not see any evidence of infection. Her wound is healing appropriately without any infection. I recommended she continue to take the clindamycin as prescribed and follow with her doctor which she has an appointment on Friday. Patient counseled regarding my diagnostic impression and care plan. Prior to discharge all questions answered. Pt agrees with treatment plan and understands strict return precautions. Pt is instructed to follow up with primary care provider within 24-48 hours. Precautionary instructions provided including instructions to return to the ER if not improving or for any worsening or changing symptoms or concerns. Departure Diagnosis: Primary Impression: Encounter for wound re-check Condition: Stable Patient Instructions: Wound Check, Lac F/U (No Infection) Additional Instructions: Llame al doctor NYDIA y mark joselito JACQUIE PARA DENTRO DE 1-2 HICKEY.Dgale a la secretaria que nosotros le instruimos hacer esta jacquie.Avise o llame si zhou condicin se empeora antes de la jacquie. Regresa aqui si peor o no mejor. ANTHONY DUMONT PA-C Nov 16, 2016 21:33
== END 2016-11-16 22:01 | disposition left against medical advice (07) ==
LOC: FTE 20:26
DX: Z48.01 Encounter for change or removal of surgical wound dressing (principal)
CPT/HCPCS: 99281